=== PATIENT | female | born 1995 | race African-American/Black ===

== ENCOUNTER 2017-10-09 19:47 | Emergency (ER) | payer SELFPAY ==
[~2017-10-09] VITALS: Ht 160 cm; Wt 65.9 kg
[2017-10-09 19:52] VITALS: TEMP 102.9
[2017-10-09 20:48] LABS: BASO % 0.2 % (0.0-2.0); EOS % 0.3 % (0-4.0); GRAN # 10.2 (1.4-6.5); GRAN % 73.4 % (42.2-75.2); HEMATOCRIT 39.1 % (37.0-47.0); HEMOGLOBIN 12.8 g/dl (12.5-16.0); LYMPH # 1.6 (1.2-3.4); LYMPH % 11.8 % (20.0-51.0); MEAN CELL VOLUME 95 fl (80.0-100.0); MEAN CORPUSCULAR HEMOGLOBIN 31 pg (27.0-31.0); MEAN CORPUSCULAR HGB CONC 33 g/dl (33.0-37.0); MEAN PLATELET VOLUME 9.6 fl (7.4-10.4); MONO # 1.9 (0.1-0.6); MONO % 13.8 % (1.7-9.3); PLATELET COUNT 178 K/mm3 (130-400); RED BLOOD COUNT 4.11 M/mm3 (4.10-5.30); REDCELL DISTRIBUTION WIDTH-CV 13.6 % (11.5-14.5)
[2017-10-09 20:56] LABS: MUCOUS Present /lpf; PH 6 (5-8); URINE APPEARANCE Clear; URINE BACTERIA Rare /hpf; URINE BILIRUBIN Negative (NEGATIVE); URINE BLOOD 1+ (NEGATIVE); URINE COLOR Yellow; URINE GLUCOSE Negative (NEGATIVE); URINE KETONE Negative (NEGATIVE); URINE LEUKOCYTE ESTERASE Trace (NEGATIVE); URINE NITRATE Negative (NEGATIVE); URINE PROTEIN(semi-quant) 1+ (NEGATIVE); URINE UROBILINOGEN Negative (NEGATIVE)
[2017-10-09 20:57] LABS: ALBUMIN 4.1 gm/dL (3.5-5.0); BILIRUBIN,TOTAL 0.2 mg/dL (0.0-1.0); COLLECTION METHOD CLEAN CATCH; CREATININE, serum 0.85 mg/dL (0.52-1.25); POTASSIUM 3.7 mmol/L (3.4-5.0); TOTAL PROTEIN 7.5 gm/dL (6.4-8.2)
[2017-10-09 20:58] LABS: HCG-QUALITATIVE URINE NEGATIVE
[2017-10-09 21:05] LABS: INFLUENZA A NEGATIVE; INFLUENZA B NEGATIVE
[2017-10-09] MEDS ORDERED: OMNICEF 300MG300 MG PO (22:41)
[2017-10-09] MEDS ORDERED: PHENERGAN 25 TA25 MG PO (22:46)
[2017-10-09] MEDS ORDERED: CIPRO 500MG TA500 MG PO (22:46)
[2017-10-09 22:54] VITALS: BP 129/84; PULSE 91
== END 2017-10-09 22:54 | disposition home or self-care (01) ==
LOC: COL.ER 19:47
PROVIDERS: Emergency Medicine
DX: N12 Tubulo-interstitial nephritis, not specified as acute or chronic (principal); F17.200 Nicotine dependence, unspecified, uncomplicated; Z88.0 Allergy status to penicillin
CPT/HCPCS: J0696; J7030; Q9967

== ENCOUNTER 2017-11-13 17:24 | Emergency (ER) | payer SELFPAY ==
[~2017-11-13] VITALS: Ht 160 cm; Wt 67.5 kg
[~2017-11-13 17:24] MED LIST: CIPRO 500MG TA500 MG PO; OMNICEF 300MG300 MG PO; PHENERGAN 25 TA25 MG PO
[2017-11-13 17:27] VITALS: BP 133/95; PULSE 110; TEMP 98.1
[2017-11-13] MEDS ORDERED: CLEOCIN HC150 MG/CAP PO (17:55)
[2017-11-13] MEDS ORDERED: NORCO 325 MG-51 TAB PO (17:55)
[2017-11-13] MEDS ORDERED: IBU800 M1 PO (19:42)
== END 2017-11-13 18:03 | disposition home or self-care (01) ==
LOC: COL.ER 17:24
DX: K08.89 Other specified disorders of teeth and supporting structures (principal)

== ENCOUNTER 2017-11-19 00:34 | Emergency (ER) | payer SELFPAY ==
[~2017-11-19] VITALS: Ht 160 cm; Wt 69.1 kg
[~2017-11-19 00:34] MED LIST changes: +CLEOCIN HC150 MG/CAP PO; +IBU800 M1 PO; +NORCO 325 MG-51 TAB PO
[2017-11-19 00:39] VITALS: BP 164/94; TEMP 97.9
[2017-11-19 02:50] VITALS: PULSE 92
== END 2017-11-19 02:50 | disposition home or self-care (01) ==
LOC: COL.ER 00:34
DX: K02.9 Dental caries, unspecified (principal); R68.84 Jaw pain
CPT/HCPCS: J1885

== ENCOUNTER 2017-11-22 00:24 | Emergency (ER) | payer SELFPAY ==
[~2017-11-22] VITALS: Ht 160 cm; Wt 69.1 kg
[2017-11-22 00:31] VITALS: BP 131/89; TEMP 97.8
[2017-11-22] MEDS ORDERED: NORCO 325 MG-51 TAB PO (00:38)
[2017-11-22 01:55] VITALS: PULSE 99
== END 2017-11-22 01:55 | disposition home or self-care (01) ==
LOC: COL.ER 00:24
DX: F41.9 Anxiety disorder, unspecified (principal); K04.7 Periapical abscess without sinus

== ENCOUNTER 2017-12-10 10:59 | Emergency (ER) | payer SELFPAY ==
[~2017-12-10] VITALS: Ht 160 cm; Wt 70.5 kg
[~2017-12-10 10:59] MED LIST changes: +FLAGYL500 MG PO; +PERCOCET 325 MG1 TA2 PO
[2017-12-10 11:03] VITALS: BP 139/91; TEMP 98.1
[2017-12-10] MEDS ORDERED: CLEOCIN HCL300 MG PO (12:09)
[2017-12-10 12:48] VITALS: PULSE 82
== END 2017-12-10 12:49 | disposition home or self-care (01) ==
LOC: COL.ER 10:59
DX: G43.909 Migraine, unspecified, not intractable, without status migrainosus (principal); F41.9 Anxiety disorder, unspecified; F17.219 Nicotine dependence, cigarettes, with unspecified nicotine-induced disorders
CPT/HCPCS: J1200; J1885

== ENCOUNTER 2018-09-18 17:09 | Inpatient (IN) | payer MEDICAID ==
[~2018-09-18] VITALS: Ht 160 cm; Wt 78.6 kg
[~2018-09-18 17:09] MED LIST changes: +CLEOCIN HCL300 MG PO
--- NOTE | 2018-09-18 17:15 | NUR ---
Patient arrives via wheelchair from ER with complaints of SROM at 1645. Patient reports occasional abdominal cramping since 1500. Patient denies vaginal bleeding and reports normal movement. Patient reports feeling nauseated the past three days. Patient assisted into gown and into bed. EFM explained and placed. VS obtained. 1717- Amniotrace performed per protocol by Stan Negrete RN, positive. Large amount of clear fluid noted upon exam. SVE per Stan Negrete RN . Pericare given. Assessment completed. Dr. Chan notified by Stan Negrete RN. See physician notification. Orders recieved. Patient updated on plan of care, medications reviewed. 1747- IV started in RH by Stan Negrete RN. Magnesium Sulfate bolus started per protocol and order after 2 RN check. No further orders at this time. Physician in transit to come assess patient.
[2018-09-18 17:18] VITALS: BP 137/99; PULSE 115; TEMP 97.4
[2018-09-18] MEDS ORDERED: TYLENOL 325MG325 MG PO (17:29)
[2018-09-18] MEDS ORDERED: PRENATAL (17:30)
[2018-09-18 18:00] VITALS: BP 123/83; PULSE 102
--- NOTE | 2018-09-18 18:14 | NUR ---
Second IV site started per protocol and order.
[2018-09-18 18:30] VITALS: BP 100/60; PULSE 86
--- NOTE | 2018-09-18 18:50 | NUR ---
1850- Mag bolus completed and maintence 2gm dose started per MD order. See EMAR for details. 1855- IV and PO antibiotics given. See EMAR for details. 1899- Bettencourt placed and UDS collected per order. 1914- Dr. Chan at the bedside. Plan of care for transfer discussed. SVE 3cm per Dr. Chan. 1929- EMS transfer team on the unit. Report given to EMS. Report called and given to JUAN Patrick at [facility]. 1937- Pt off EFM and toco for transfer to ambulance. 1944- Pt off unit and in the care of EMS team for transfer.
[2018-09-18 19:00] VITALS: BP 118/78; PULSE 81
[2018-09-18 19:38] VITALS: BP 125/82; PULSE 84
[2018-09-18 19:38] LABS: TRICYCLIC ANTIDEPRESS URINE NEGATIVE
== END 2018-09-18 19:45 | disposition short-term general hospital (02) | DRG 832 ==
LOC: LDRO 17:09 → LDR 17:28
PROVIDERS: ADMIT Obstetrics & Gynecology
DX: O42.913 Preterm premature rupture of membranes, unspecified as to length of time between rupture and onset of labor, third trimester (principal); O99.323 Drug use complicating pregnancy, third trimester; Z3A.31 31 weeks gestation of pregnancy; F12.90 Cannabis use, unspecified, uncomplicated; O99.333 Smoking (tobacco) complicating pregnancy, third trimester; Z88.0 Allergy status to penicillin
CPT/HCPCS: J0702; J3475; J7120